=== PATIENT | female | born 1990 | race African-American/Black ===

== ENCOUNTER 2022-01-11 08:00 | Inpatient (IN) | payer OTHER ==
[2022-01-11] MEDS ORDERED: DINOPROSTONE 10 MG VAGINAL SUPPOSITORY VG ONE (08:54)
[2022-01-11 10:14] VITALS: BMI 47.8
[2022-01-11] MEDS: ELECTROLYTE-148 SOLN 1,000 ML IV SCH (15:00)
[2022-01-11] MEDS ORDERED: AMPICILLIN - 2 GM in SODIUM CHLORIDE 100 ML IVPB ONE (21:30)
[2022-01-11] MEDS ORDERED: OXYTOCIN 30 UNITS in 0.9% NS 30 UNIT/500 ML INFUS.BAG IVPB ONE (23:57)
[2022-01-11] MEDS ORDERED: AMPICILLIN SODIUM 2 GM VIAL ONE (23:57)
[2022-01-12] MEDS ORDERED: AMPICILLIN - 2 GM in SODIUM CHLORIDE 100 ML IVPB ONE
[2022-01-12] MEDS ORDERED: OXYTOCIN 30 UNITS in 0.9% NS 30 UNIT/500 ML INFUS.BAG IVPB SCH ×2 (02:15)
[2022-01-12] MEDS ORDERED: AMPICILLIN SODIUM 1 GM VIAL ONE ×3 (04:04→13:03)
[2022-01-12] MEDS: AMPICILLIN - 1 GM in SODIUM CHLORIDE 100 ML IVPB SCH ×5 (04:10→20:27)
[2022-01-12] MEDS ORDERED: FENTANYL/BUPIVACAINE/NS/PF - PCEA - 50 ML DISP.SYRIN EP ONE ×2 (08:08→13:33)
[2022-01-12] MEDS ORDERED: BUPIVACAINE HCL/PF 0.25% (2.5MG/ML) 10 ML VIAL ONE (08:30)
[2022-01-12] MEDS ORDERED: LIDOCAINE HCL/PF 2% SDV 5ML VIAL ONE ×2 (08:54→16:33)
[2022-01-12] MEDS ORDERED: NALOXONE HCL 0.4 MG/ML VIAL IVPUSH PRN (09:21)
[2022-01-12] MEDS ORDERED: FENTANYL/BUPIVACAINE/NS/PF - PCEA - 50 ML DISP.SYRIN EP SCH (09:30)
[2022-01-12] MEDS: ELECTROLYTE-148 SOLN 1,000 ML IV SCH (15:00)
[2022-01-12 18:09] LABS: CORD HCO3 23.2 mmHg (20-29); CORD PCO2 56.9 mmHg (30-78); CORD pH 7.229 (7.14-7.44)
[2022-01-12 18:10] LABS: CORD BASE EXCESS -4.8 mmol/L (0-2); CORD HCO3 21.9 mmHg (20-29); CORD pH 7.295 (7.14-7.44)
[2022-01-12] MEDS ORDERED: BENZOCAINE 28 GM HEMORRHOIDAL OINTMENT TP PRN (18:53)
[2022-01-12] MEDS ORDERED: METHYLERGONOVINE MALEATE 0.2 MG/1 ML AMP IM PRN (18:53)
[2022-01-12] MEDS ORDERED: IBUPROFEN 800 MG/8 ML IJ IVPB PRN (18:53)
[2022-01-12] MEDS ORDERED: WITCH HAZEL 50% (TUCKS) 40 PAD/JAR PAD TP PRN (18:53)
[2022-01-12] MEDS ORDERED: BENZOCAINE 20% 57 GM BOTTLE TP PRN (18:53)
[2022-01-12] MEDS: OXYTOCIN 20 UNITS in 0.9% NS 20 UNIT/1,000 ML INFUS.BAG IV SCH (19:00)
[2022-01-12] MEDS ORDERED: OXYTOCIN 20 UNITS in 0.9% NS 20 UNIT/1,000 ML INFUS.BAG IV ONE (19:31)
[2022-01-13] MEDS ORDERED: ceFAZolin SODIUM 1 GM VIAL ONE ×3 (01:38→17:05)
[2022-01-13] MEDS ORDERED: DEXTROSE 5%-WATER - 50 ML IVPB ONE ×3 (01:38→17:05)
[2022-01-13] MEDS: OXYTOCIN 20 UNITS in 0.9% NS 20 UNIT/1,000 ML INFUS.BAG IV SCH ×2 (01:45→19:02)
[2022-01-13] MEDS: CEFAZOLIN 1 GM in DEXTROSE 5%-WATER - 50 ML IVPB SCH ×3 (01:45→17:14)
[2022-01-13] MEDS: ACETAMINOPHEN 325 MG TABLET (FP) PO PRN ×2 (04:14→16:24)
[2022-01-13] MEDS ORDERED: oxyCODONE HCL 5 MG TABLET PO PRN ×2 (06:53)
[2022-01-13 07:52] LABS: BASO % 0.1 % (0-2.0); EOS % 0.1 % (0-4.5); HEMATOCRIT 28.2 % (32.4-45.2); HEMOGLOBIN 9.9 GM/dL (10.7-15.3); LYMPH % 11.7 % (8-40); MCH 33.4 pg (25.7-33.7); MCHC 34.9 g/dl (32.0-36.0); MEAN CELL VOLUME 95.7 fl (80-96); MEAN PLT VOLUME 9.1 fl (7.5-11.1); MONO % 8.1 % (3.8-10.2); PLATELET COUNT 122 10^3/uL (134-434); RBC 2.95 M/mm3 (3.60-5.2); RDW 14.4 % (11.6-15.6); WHITE BLOOD COUNT 10.7 K/mm3 (4.0-10.0)
[2022-01-13] MEDS: PRENATAL VITAMINS W/ FOLIC ACID TABLET (FP) PO SCH (09:57)
[2022-01-13] MEDS: ENOXAPARIN NA (PORCINE) 40 MG/0.4 ML DISP.SYRIN SQ SCH (09:57)
[2022-01-13] MEDS: FERROUS SO4 325 MG TABLET (FP) PO SCH (09:57)
[2022-01-13] MEDS ORDERED: PRENATAL VITAMINS W/ FOLIC ACID TABLET (FP) PO SCH (10:00)
[2022-01-13] MEDS ORDERED: BISACODYL 10 MG SUPP.RECT RC PRN (18:53)
[2022-01-13] MEDS: SIMETHICONE 80 MG TAB.CHEW (FP) PO PRN (20:06)
[2022-01-13] MEDS: IBUPROFEN 600 MG TABLET (FP) PO PRN (20:06)
[2022-01-13] MEDS: SENNOSIDES/DOCUSATE COMBO (SENNA PLUS) TABLET (UD) PO PRN (21:53)
[2022-01-14] MEDS: IBUPROFEN 600 MG TABLET (FP) PO PRN ×4 (07:14→20:51)
[2022-01-14] MEDS: SIMETHICONE 80 MG TAB.CHEW (FP) PO PRN ×4 (07:15→20:51)
[2022-01-14] MEDS: FERROUS SO4 325 MG TABLET (FP) PO SCH (10:12)
[2022-01-14] MEDS: PRENATAL VITAMINS W/ FOLIC ACID TABLET (FP) PO SCH (10:14)
[2022-01-14] MEDS: ENOXAPARIN NA (PORCINE) 40 MG/0.4 ML DISP.SYRIN SQ SCH (10:15)
[2022-01-14] MEDS: SENNOSIDES/DOCUSATE COMBO (SENNA PLUS) TABLET (UD) PO PRN (20:51)
[2022-01-15] MEDS: SIMETHICONE 80 MG TAB.CHEW (FP) PO PRN ×4 (00:26→21:22)
[2022-01-15] MEDS: IBUPROFEN 600 MG TABLET (FP) PO PRN ×4 (00:26→21:24)
[2022-01-15 07:19] LABS: BASO % 0.2 % (0-2.0); EOS % 0.3 % (0-4.5); HEMATOCRIT 26.7 % (32.4-45.2); LYMPH % 25.5 % (8-40); MCH 32.5 pg (25.7-33.7); MCHC 33.9 g/dl (32.0-36.0); MEAN CELL VOLUME 95.9 fl (80-96); MEAN PLT VOLUME 9.5 fl (7.5-11.1); MONO % 7.5 % (3.8-10.2); NEUT % 66.5 % (42.8-82.8); PLATELET COUNT 141 10^3/uL (134-434); RBC 2.79 M/mm3 (3.60-5.2); RDW 14.1 % (11.6-15.6); WHITE BLOOD COUNT 6.4 K/mm3 (4.0-10.0)
[2022-01-15] MEDS: FERROUS SO4 325 MG TABLET (FP) PO SCH (10:19)
[2022-01-15] MEDS: PRENATAL VITAMINS W/ FOLIC ACID TABLET (FP) PO SCH (10:19)
[2022-01-15] MEDS: ENOXAPARIN NA (PORCINE) 40 MG/0.4 ML DISP.SYRIN SQ SCH (10:19)
[2022-01-15] MEDS: ACETAMINOPHEN 325 MG TABLET (FP) PO PRN ×2 (12:09→22:34)
[2022-01-15] MEDS ORDERED: BISACODYL 10 MG SUPP.RECT PR ONE (12:44)
[2022-01-15] MEDS: SENNOSIDES/DOCUSATE COMBO (SENNA PLUS) TABLET (UD) PO PRN (21:23)
[2022-01-16] MEDS: IBUPROFEN 600 MG TABLET (FP) PO PRN (08:20)
[2022-01-16] MEDS: PRENATAL VITAMINS W/ FOLIC ACID TABLET (FP) PO SCH (09:26)
[2022-01-16] MEDS: FERROUS SO4 325 MG TABLET (FP) PO SCH (09:26)
[2022-01-16] MEDS: ENOXAPARIN NA (PORCINE) 40 MG/0.4 ML DISP.SYRIN SQ SCH (09:26)
[2022-01-16] MEDS: ACETAMINOPHEN 325 MG TABLET (FP) PO PRN (09:27)
[2022-01-16 11:44] VITALS: BP 111/75; PULSE 78; TEMP 98.3
== END 2022-01-16 14:15 | disposition home or self-care (01) | DRG 788 ==
LOC: JLDR 08:00 → J3W 01-12 19:46
PROVIDERS: ADMIT Obstetrics & Gynecology; ATTEND Obstetrics & Gynecology
PROC: 3E0P7VZ Introduction of Hormone into Female Reproductive, Via Natural or Artificial Opening (ICD-10-PCS; 2022-01-11)
PROC: 10D00Z1 Extraction of Products of Conception, Low, Open Approach (ICD-10-PCS; principal; 2022-01-12)
DX: O48.0 Post-term pregnancy (principal); Z3A.40 40 weeks gestation of pregnancy; O62.0 Primary inadequate contractions; O33.9 Maternal care for disproportion, unspecified; O99.213 Obesity complicating pregnancy, third trimester; Z37.0 Single live birth
CPT/HCPCS: 36415; 36600; 82803; 85025; 87340; 88307-TC